=== PATIENT | female | born 1955 ===

== ENCOUNTER 2022-11-07 10:57 | Outpatient (CLI) | payer BC, SELFPAY ==
--- NOTE | 2022-11-07 11:30 | CRLHL7_ITS ---
For Patients: As a result of the Century Cures Act, medical imaging exams and procedure reports are released immediately into your electronic medical record. You may view this report before your referring provider. If you have questions, please contact your health care provider. BILATERAL SCREENING MAMMOGRAM WITH COMPUTER-AIDED DETECTION AND TOMOSYNTHESIS TECHNIQUE: CC and MLO views were obtained. These mammographic images have been obtained using full-field digital technique. These mammographic images were interpreted with the benefit of computer-aided detection. Breast Tomosynthesis was used in this interpretation. COMPARISON FILM: 08/13/21, 07/25/20, 09/07/18. FINDINGS: The breasts are heterogeneously dense, which may obscure small masses IMPRESSION: There is no radiographic evidence for malignancy. ASSESSMENT: BI-RADS Category 2: Benign RECOMMENDATION: Routine screening mammogram in 1 year. A lay language report of this examination will be provided to the patient. Tone Quick M.D. Diagnostic Radiologist [email or web address] Transcribed: 1:48 pm DW/Dictated by: Tone Quick MD @ 11/07/2022 12:33:00 PM (Electronically Signed)
== END 2022-11-07 10:58 | disposition home or self-care (01) ==
PROVIDERS: Visit Provider Physician Assistant Medical
DX: Z12.31 Encounter for screening mammogram for malignant neoplasm of breast (principal); R92.2 Inconclusive mammogram
CPT/HCPCS: 77063; 77067

== ENCOUNTER 2023-07-09 15:55 | Outpatient (CLI) | payer BC, SELFPAY ==
[2023-07-09 23:02] LABS: Hepatitis C Virus Antibody* Negative (Negative)
== END 2023-07-09 15:56 | disposition home or self-care (01) ==
PROVIDERS: PCP Family Medicine; Visit Provider Family Medicine
DX: Z00.00 Encounter for general adult medical examination without abnormal findings (principal); L65.9 Nonscarring hair loss, unspecified; R73.03 Prediabetes; I10 Essential (primary) hypertension; M85.80 Other specified disorders of bone density and structure, unspecified site; Z53.20 Procedure and treatment not carried out because of patient's decision for unspecified reasons
CPT/HCPCS: 80053; 80061; 82043; 82570; 84443; 86803

== ENCOUNTER 2023-07-30 13:51 | Outpatient (CLI) | payer BC, SELFPAY ==
--- NOTE | 2023-07-30 14:00 | CRLHL7_ITS ---
For Patients: As a result of the Century Cures Act, medical imaging exams and procedure reports are released immediately into your electronic medical record. You may view this report before your referring provider. If you have questions, please contact your health care provider. DXA BONE MINERAL DENSITY STUDY Reason for exam: Other specified disorders of bone density. Current height (in): 60. Weight (lb): 166. Menopause age: 53. Ethnicity: . 1. Have you had a previous hip or vertebral fracture? No. 2. Have you had any fractures during your adult life which did not result from significant trauma (e.g., auto accident)? No. 3. Did either of your parents have a hip fracture? No. 4. Do you smoke? No. 5. Have you ever taken Glucocorticoids? No. 6. Do you have rheumatoid arthritis? No. 7. Do you have secondary osteoporosis? No. 8. Do you drink 3 or more alcoholic drinks per day? No. 9. Are you being treated for osteoporosis? No. 10. Have you ever taken any of the following medications: Actonel, Evista, Fosamax, Miacalcin, Reclast, Boniva, Forteo, HRT (i.e., estrogen/hormone therapy), Protelos, Prolia, Vitamin D, Calcium, other ??? please specify. ANSWER: Yes, Fosamax, vitamin D, and calcium. 11. Do you have any of the following medical conditions: Anorexia or bulimia, asthma or emphysema, end stage renal disease, hyperparathyroidism, any seizure disorders, cancer, inflammatory bowel diseases, hysterectomy, other ??? please specify. ANSWER: Yes, hysterectomy. 12. What was your maximum height (inches)? 60. 13. Do you perform weight bearing exercise regularly? No. 14. Do you regularly consume dairy products? Yes. 15. Do you drink caffeinated beverages? Yes. If female: 16. At what age did your period start? 15. 17. Are you premenopausal? No. 18. How many full-term pregnancies have you had? 2. 19. Have you ever missed your period for more than 6 months in a row (not including or menopause)? No. TECHNIQUE: Bone mineral density study was performed using the [employer]. FINDINGS: The results of the study expressed as bone mineral density (BMD) are as follows: Lumbar spine L1 to L4: BMD: 0.904 g/cm2. T-score: -1.3. Z-score: 0.5 Neck Left: BMD: 0.689 g/cm2. T-score: -1.4. Z-score: -0.1 Right: BMD: 0.741 g/cm2. T-score: -1.0. Z-score: 0.3 Total Left: BMD: 0.942 g/cm2. T-score: 0.0. Z-score: 1.0 Right: BMD: 0.991 g/cm2. T-score: 0.4. Z-score: 1.4 IMPRESSION: Osteopenia. FRAX 10-year Fracture Risk Major Osteoporotic Fracture: 4.7% Hip Fracture: 0.5% Reported Risk Factors: [place] () Neck BMD=0.689, BMI= 32.4 Tone Quick M.D. Diagnostic Radiologist [email or web address] [email or web address]/[email or web address] og/Dictated by: Tone Quick MD @ 07/30/2023 2:54:00 PM (Electronically Signed)
== END 2023-07-30 13:52 | disposition home or self-care (01) ==
PROVIDERS: PCP Family Medicine; Visit Provider Family Medicine
DX: M85.80 Other specified disorders of bone density and structure, unspecified site (principal); M85.88 Other specified disorders of bone density and structure, other site
CPT/HCPCS: 77080

== ENCOUNTER 2023-08-17 16:59 | Outpatient (CLI) | payer BC, SELFPAY | END 2023-08-17 17:00 | disposition home or self-care (01) | LOC: FRMREF 17:00 | PROVIDERS: PCP Family Medicine; Visit Provider Family Medicine | DX: E53.8 Deficiency of other specified B group vitamins (principal); L65.9 Nonscarring hair loss, unspecified | CPT/HCPCS: 82607 ==

== ENCOUNTER 2024-05-02 11:08 | Outpatient (CLI) | payer BC, SELFPAY ==
--- NOTE | 2024-05-02 11:30 | CRLHL7_ITS ---
For Patients: As a result of the Century Cures Act, medical imaging exams and procedure reports are released immediately into your electronic medical record. You may view this report before your referring provider. If you have questions, please contact your health care provider. BILATERAL SCREENING MAMMOGRAM WITH COMPUTER-AIDED DETECTION AND TOMOSYNTHESIS TECHNIQUE: CC and MLO views were obtained. These mammographic images have been obtained using full-field digital technique. These mammographic images were interpreted with the benefit of computer-aided detection. Breast Tomosynthesis was used in this interpretation. COMPARISON FILM: 11/07/22, 08/13/21, 07/25/20. FINDINGS: There are scattered areas of fibroglandular density. IMPRESSION: There is no radiographic evidence for malignancy. ASSESSMENT: BI-RADS Category 2: Benign RECOMMENDATION: Routine screening mammogram in 1 year. A lay language report of this examination will be provided to the patient. Tone Quick M.D. Diagnostic Radiologist [email or web address] SP/Dictated by: Tone Quick MD @ 05/03/2024 9:28:00 AM (Electronically Signed)
== END 2024-05-02 11:09 | disposition home or self-care (01) ==
LOC: MAMMO 11:09
PROVIDERS: PCP Family Medicine; Visit Provider Family Medicine
DX: Z12.31 Encounter for screening mammogram for malignant neoplasm of breast (principal)
CPT/HCPCS: 77063; 77067

== ENCOUNTER 2024-05-31 08:23 | Outpatient (CLI) | payer BC, SELFPAY | END 2024-05-31 08:24 | disposition home or self-care (01) | PROVIDERS: PCP Family Medicine; Visit Provider Family Medicine | DX: I10 Essential (primary) hypertension (principal); R73.03 Prediabetes; Z13.220 Encounter for screening for lipoid disorders | CPT/HCPCS: 80053; 80061; 82043; 82570 ==

== ENCOUNTER 2024-11-16 10:17 | Outpatient (CLI) | payer BC, SELFPAY | END 2024-11-16 10:18 | disposition home or self-care (01) | PROVIDERS: PCP Family Medicine; Visit Provider Family Medicine | DX: R73.03 Prediabetes (principal); R79.89 Other specified abnormal findings of blood chemistry; I10 Essential (primary) hypertension; R35.0 Frequency of micturition | CPT/HCPCS: 80053; 82607; 87086 ==

== ENCOUNTER 2024-12-26 06:21 | Outpatient (CLI) | payer BC, SELFPAY ==
--- NOTE | 2024-12-26 07:41 | P.ANES_ITS ---
Anesthesia Charges Start Date/Time Anesthesia Start Date: 12/26/24 Anesthesia Start Time: 07:17 Stop Date/Time Anesthesia Stop Date: 12/26/24 Anesthesia Stop Time: 07:37 Coding CPT Codes CPT Codes: ANES LWR INTST SCR COLSC - 38520 ([id number]) QX - RESIDUE FURNACE OPERATOR SVC W/ MD MED DIRECTION, QK - REVENUE CYCLE ADMINISTRATOR 2-4 CNCRNT ANES PROC, P2 - PATIENT W/MILD SYST DISEASE
--- NOTE | 2024-12-26 07:41 | W.ANESCHARGE ---
Anesthesia Charges Start Date/Time Anesthesia Start Date: 12/26/24 Anesthesia Start Time: 07:17 Stop Date/Time Anesthesia Stop Date: 12/26/24 Anesthesia Stop Time: 07:37 Coding CPT Codes CPT Codes: ANES LWR INTST SCR COLSC - 91826 ([id number]) QX - GREY GOODS EXAMINER SVC W/ MD MED DIRECTION, QK - COUNTER FORMER 2-4 CNCRNT ANES PROC, P2 - PATIENT W/MILD SYST DISEASE
--- NOTE | 2024-12-26 07:55 | P.ANES_ITS ---
Anesthesia Charges Start Date/Time Anesthesia Start Date: 12/26/24 Anesthesia Start Time: 07:17 Stop Date/Time Anesthesia Stop Date: 12/26/24 Anesthesia Stop Time: 07:37 Coding CPT Codes CPT Codes: GABRIELA LWR INTST SCR COLSC - 17600 ([id number]) QK - RECORD CENTER COORDINATOR 2-4 CNCRNT GABRIELA PROC, QX - FRONT WINDOW CASHIER SVC W/ MD MED DIRECTION, P2 - PATIENT W/MILD SYST DISEASE
--- NOTE | 2024-12-26 07:55 | W.ANESCHARGE ---
Anesthesia Charges Start Date/Time Anesthesia Start Date: 12/26/24 Anesthesia Start Time: 07:17 Stop Date/Time Anesthesia Stop Date: 12/26/24 Anesthesia Stop Time: 07:37 Coding CPT Codes CPT Codes: GABRIELA LWR INTST SCR COLSC - 47258 ([id number]) QK - WIRE TURNING MACHINE OPERATOR 2-4 CNCRNT GABRIELA PROC, QX - PRODUCTION BROACHER SVC W/ MD MED DIRECTION, P2 - PATIENT W/MILD SYST DISEASE
== END 2024-12-26 06:22 | disposition home or self-care (01) ==
LOC: OP CLINIC 06:25
PROVIDERS: PCP Family Medicine; Visit Provider Internal Medicine
DX: Z12.11 Encounter for screening for malignant neoplasm of colon (principal)
CPT/HCPCS: 00812; 45378; J2704

== ENCOUNTER 2025-08-07 12:45 | Outpatient (CLI) | payer BC, SELFPAY | END 2025-08-07 12:46 | disposition home or self-care (01) | PROVIDERS: PCP Family Medicine; Visit Provider Family Medicine | DX: I10 Essential (primary) hypertension (principal); R35.0 Frequency of micturition; R73.03 Prediabetes; Z12.39 Encounter for other screening for malignant neoplasm of breast | CPT/HCPCS: 80053; 80061; 82043; 82570 ==

== ENCOUNTER 2025-08-16 07:01 | Outpatient (CLI) | payer BC, SELFPAY ==
--- NOTE | 2025-08-16 07:15 | CRLHL7_ITS ---
For Patients: As a result of the Century Cures Act, medical imaging exams and procedure reports are released immediately into your electronic medical record. You may view this report before your referring provider. If you have questions, please contact your health care provider. INDICATION: ABNORMAL BLOOD CHEMISTRY COMPARISON: none TECHNIQUE: Real time goodson scale imaging and color Doppler analysis was performed of the right upper quadrant. FINDINGS: Liver echotexture is diffusely increased. No intrahepatic mass. There is a normal appearance of the hepatic IVC and proximal abdominal aorta. There is no evidence of ascites. The gallbladder is of normal size and there is no evidence of intraluminal stones or sludge. The gallbladder wall measures 1 mm in thickness. The common bile duct is of normal size and measures 6 mm in diameter at the level of the alex hepatis. The pancreas appears normal. There is no evidence of a stone or hydronephrosis within the right kidney. The right kidney measures 10.5 cm in length. IMPRESSION: Moderately severe diffuse hepatic steatosis. Remainder unremarkable Dictated by Tone Quick MD @ 08/16/2025 11:28:15 AM (Electronically Signed)
--- NOTE | 2025-08-16 08:45 | CRLHL7_ITS ---
For Patients: As a result of the Century Cures Act, medical imaging exams and procedure reports are released immediately into your electronic medical record. You may view this report before your referring provider. If you have questions, please contact your health care provider. DIGITAL DIAGNOSTIC BILATERAL MAMMOGRAM USING TOMOSYNTHESIS AND COMPUTER-AIDED DETECTION CLINICAL HISTORY: RIGHT breast pain. COMPARISON: 05/02/2024, 11/07/2022, 08/13/2021. TECHNIQUE: Digital BILATERAL mammogram in four projections with computer-aided detection. Tomosynthesis was used in this interpretation. BREAST COMPOSITION: The breasts are heterogeneously dense, which may obscure small masses. FINDINGS: 3D CC/MLO BILATERAL mammogram images submitted. Benign calcifications are present bilaterally. No architectural distortion or suspicious mass. IMPRESSION: No suspicious findings. No evidence of malignancy. RECOMMENDATIONS: Routine screening mammography. A lay language report of this examination will be provided to the patient. BI-RADS Category 2: Benign Dictated by Tone Quick MD @ 08/16/2025 10:58:39 AM jj/Dictated by: Tone Quick MD @ 08/16/2025 10:58:00 AM (Electronically Signed)
--- NOTE | 2025-08-16 15:00 | CRLHL7_ITS ---
For Patients: As a result of the Century Cures Act, medical imaging exams and procedure reports are released immediately into your electronic medical record. You may view this report before your referring provider. If you have questions, please contact your health care provider. DXA BONE MINERAL DENSITY STUDY Reason for exam: Osteopenia. Current height (in): 60. Weight (lb): 178. Menopause age: 53. Ethnicity: [place]. 1. Have you had a previous hip or vertebral fracture? No. 2. Have you had any fractures during your adult life which did not result from significant trauma (e.g., auto accident)? No. 3. Did either of your parents have a hip fracture? No. 4. Do you smoke? No. 5. Have you ever taken Glucocorticoids? No. 6. Do you have rheumatoid arthritis? No. 7. Do you have secondary osteoporosis? No. 8. Do you drink 3 or more alcoholic drinks per day? No. 9. Are you being treated for osteoporosis? No. 10. Have you ever taken any of the following medications: Actonel, Evista, Fosamax, Miacalcin, Reclast, Boniva, Forteo, HRT (i.e. estrogen/hormone therapy), Protelos, Prolia, Vitamin D, Calcium, other ??? please specify. ANSWER: Yes, Fosamax (i.e., alendronate), vitamin D, and calcium. 11. Do you have any of the following medical conditions: Anorexia or bulimia, asthma or emphysema, end stage renal disease, hyperparathyroidism, any seizure disorders, cancer, inflammatory bowel diseases, hysterectomy, other ??? please specify. ANSWER: Yes, any seizure disorders and hysterectomy. 12. What was your maximum height (inches)? 60. 13. Do you perform weight bearing exercise regularly? No. 14. Do you regularly consume dairy products? Yes. 15. Do you drink caffeinated beverages? Yes. 16. At what age did your period start? 15. 17. Are you premenopausal? No. 18. How many full-term pregnancies have you had? 2. 19. Have you ever missed your period for more than 6 months in a row (not including or menopause)? No. TECHNIQUE: Bone mineral density study was performed using the [employer]. FINDINGS: The results of the study expressed as bone mineral density (BMD) are as follows: Lumbar spine L1 to L4: BMD: 0.913 g/cm2. T-score: -1.2. Z-score: 0.7. Neck Left: BMD: 0.673 g/cm2. T-score: -1.6. Z-score: -0.1. Right: BMD: 0.804 g/cm2. T-score: -0.4. Z-score: 1.0. Total Left: BMD: 0.987 g/cm2. T-score: 0.4. Z-score: 1.5. Right: BMD: 1.044 g/cm2. T-score: 0.8. Z-score: 1.9. IMPRESSION: Osteopenia. *Comparison exams done prior to 04/2020 were performed on different unit, [employer]. COMPARISON: Compared with scan of 07/30/2023, the bone mineral density has increased by 1.0 percent at the spine and increased by 5.1 percent at the hip. FRAX 10-year Fracture Risk Major Osteoporotic Fracture: 5.0 percent Hip Fracture: 0.6 percent Reported Risk Factors: [place] () Neck BMD=0.673, BMI=34.8 Tone Quick M.D. Diagnostic Radiologist [email or web address] BLAKE/[email or web address] og/Dictated by: Tone Quick MD @ 08/16/2025 11:11:00 AM (Electronically Signed)
== END 2025-08-16 07:02 | disposition home or self-care (01) ==
LOC: US 07:03
PROVIDERS: PCP Family Medicine; Visit Provider Family Medicine
DX: M85.80 Other specified disorders of bone density and structure, unspecified site (principal); M85.89 Other specified disorders of bone density and structure, multiple sites; N64.4 Mastodynia; R92.333 Mammographic heterogeneous density, bilateral breasts; R79.89 Other specified abnormal findings of blood chemistry; K76.0 Fatty (change of) liver, not elsewhere classified
CPT/HCPCS: 76705; 77066; 77080; G0279

== ENCOUNTER 2025-11-13 07:35 | Outpatient (CLI) | payer BC, SELFPAY | END 2025-11-13 07:36 | disposition home or self-care (01) | PROVIDERS: PCP Family Medicine; Visit Provider Family Medicine | DX: R73.03 Prediabetes (principal); I10 Essential (primary) hypertension; R79.89 Other specified abnormal findings of blood chemistry | CPT/HCPCS: 80053; 82607 ==

== ENCOUNTER 2025-11-29 12:01 | Outpatient (CLI) | payer BC, SELFPAY ==
--- NOTE | 2025-12-12 10:48 | W.PM.SLEEP ---
Sleep Study Details Details Interpreting Provider: Dennise Date of Sleep Study: 11/29/25 Sleep Study Details: STUDY TYPE:? Home unattended ? BMI:? 34.37 ORDERING PROVIDER:? Antionette INDICATION:? Concern for sleep apnea ? SLEEP SUMMARY:? 523 minutes monitored RESPIRATORY SUMMARY:? AHI 74.6 Low oxygen 70 22.3% of study oxygen less than 90% Snoring 99% PERIODIC LIMB MOVEMENTS OF SLEEP:? Not recorded CARDIAC:? Range 63-122, mean 82.4 beats per minute IMPRESSION:? Severe obstructive sleep apnea RECOMMENDATION: AutoSet CPAP or an in-lab titration is recommended.
== END 2025-11-29 12:02 | disposition home or self-care (01) ==
PROVIDERS: PCP Family Medicine; Visit Provider Family Medicine
DX: G47.33 Obstructive sleep apnea (adult) (pediatric) (principal)
CPT/HCPCS: 95806